=== PATIENT | male | born 1975 | race Hispanic/Latino ===

== ENCOUNTER 2020-01-05 10:43 | Emergency (ER) | payer OTHER ==
[~2020-01-05] VITALS: Ht 175.3 cm; Wt 108.9 kg
[2020-01-05 11:59] LABS: BASOPHILS % 0.5 % (0.0-1.0); EOSINOPHILS % 0.6 % (0.0-6.0); HEMATOCRIT 44.3 % (38.2-49.6); HEMOGLOBIN 14.8 g/dL (14.0-18.0); LYMPHOCYTES # (AUTO) 1.3 (1.0-3.2); LYMPHOCYTES % 20.8 % (18.0-39.1); MEAN CORPUSCULAR HGB CONC 33.4 g/dL (31-35); MEAN CORPUSCULAR VOLUME 89.7 fL (81-99); MONOCYTES # (AUTO) 0.3 (0.2-0.8); MONOCYTES % 4.9 % (4.4-11.3); NEUTROPHILS # (AUTO) 4.6 (2.1-6.9); NEUTROPHILS % 72.6 % (38.7-80.0); PLATELET COUNT 183 x10e3/uL (140-360); RED BLOOD COUNT 4.94 x10e6/uL (4.3-5.7); RED CELL DISTRIBUTION WIDTH 11.7 % (11.7-14.4)
[2020-01-05] MEDS ORDERED: DONNATAL/LIDOCAINE/MAALOX 30 ML SUSP PO ONE (12:00)
[2020-01-05 12:12] LABS: ALANINE AMINOTRANSFERASE 35 IU/L (0-55); ALBUMIN 4.3 g/dL (3.5-5.0); ALBUMIN/GLOBULIN RATIO 1.4 (0.8-2.0); ALKALINE PHOSPHATASE 84 IU/L (40-150); ANION GAP 14.3 mmol/L (8-16); BLOOD UREA NITROGEN 12 mg/dL (7-26); BUN/CREATININE RATIO 11 (6-25); CALCIUM 9.6 mg/dL (8.4-10.2); CARBON DIOXIDE 25 mmol/L (22-29); CHLORIDE 107 mmol/L (98-107); CREATINE KINASE 195 IU/L (30-200); CREATININE, SERUM 1.07 mg/dL (0.72-1.25); EST GLOMERULAR FILTRATION RATE > 60 ML/MIN (60-); GLUCOSE 97 mg/dL (74-118); POTASSIUM 4.3 mmol/L (3.5-5.1); SODIUM 142 mmol/L (136-145)
[2020-01-05] MEDS ORDERED: ASPIRIN 325 MG TAB PO ONE (12:30)
[2020-01-05] MEDS ORDERED: BELLADONNA ALK/PHENOBARBITAL 5 ML UDC ONE (12:36)
[2020-01-05] MEDS ORDERED: LIDOCAINE VISC 2% SOLN 15 ML UDC ONE (12:36)
[2020-01-05] MEDS ORDERED: MAGNESIUM/ALUMINUM/SIMETHICONE 30 ML UDC ONE (12:37)
--- NOTE | 2020-01-05 13:09 | Diagnostic Imaging Report ---
EXAMINATION: PA and lateral views of the chest. COMPARISON: None CLINICAL HISTORY: Chest pain, heartburn DISCUSSION: Lines/tubes: None. Lungs: The lungs are well inflated and clear. There is no evidence of pneumonia or pulmonary edema. Pleura: There is no pleural effusion or pneumothorax. Heart and mediastinum: Cardiomediastinal silhouette is unremarkable. Pulmonary vasculature is normal. Bones and soft tissues: No acute bony abnormalities. Very mild age-appropriate degenerative changes in the thoracic spine. IMPRESSION: No acute cardiopulmonary abnormalities. Signed by: Dr. Nikunj Pate M.D. on 01/05/2020 1:06 PM
[2020-01-05] MEDS ORDERED: LOMOTIL TABLET1 EACH PO (14:52)
[2020-01-05] MEDS ORDERED: CIPRO500 MG PO (14:52)
[2020-01-05] MEDS ORDERED: ONDANSETRON ODT8 MG PO (14:52)
[2020-01-08] MEDS ORDERED: IBUPROFEN400 MG PO (14:35)
== END 2020-01-05 15:14 | disposition home or self-care (01) ==
LOC: ER 10:43
DX: R10.13 Epigastric pain (principal); R11.2 Nausea with vomiting, unspecified; A04.9 Bacterial intestinal infection, unspecified
CPT/HCPCS: 36415; 71046; 80053; 82550; 82553; 83735; 84484; 85025; 93005; 99284

== ENCOUNTER → 2020-01-14 | Day surgery (SDC) | payer OTHER ==
[~2020-01-14] MED LIST: CIPRO500 MG PO; FENTANYL CITRATE/PF 100MCG/2 ML INJ ONE; IBUPROFEN400 MG PO; LOMOTIL TABLET1 EACH PO; MIDAZOLAM HCL 2 MG/2 ML VIAL ONE; ONDANSETRON ODT8 MG PO; PROPOFOL IV EMULSION 10 MG/ML 20 ML VIAL ONE
--- OUTSIDE RECORDS SUMMARY | 2020-01-14 13:19 | XMS REPORT ---
Author Author [facility] Organization [facility] Address Unknown Phone Unavailable Care Team Providers Care Salesperson Shoes Name Role Phone NO, PCP PP Unavailable Viry MUSE Unavailable Unavailable Advance Directives Directive Decision Effective Date Termination Date Status Comm ents Yes N/A Active Problems Condition Name Condition Details Condition Category Status Onset Date Resolution Date Last Treatment Date Treating Clinician Comments Problem Condition Allergies, Adverse Reactions, Alerts This patient has no known allergies or adverse reactions. Medications Ordered Medication Name Filled Medication Name Start Date Stop Da te Current Medication? Ordering Clinician Indication Dosage Frequency Signature (SIG) Comments Components Ciprofloxacin Hcl (Cipro) 500 Mg TABLET Ciprofloxacin Hcl (C ipro) 500 Mg TABLET 2020-01-05 14:52:00 Yes 500 Diphenoxylate Hcl/Atropine (Lomotil Tablet) 1 Each TAB LET Diphenoxylate Hcl/Atropine (Lomotil Tablet) 1 Each TABLET 2020-01-05 14:52:00 Yes 2 Ondansetron (Ondansetron Odt) 8 Mg TAB.RAPDIS Ondanset juanito (Ondansetron Odt) 8 Mg TAB.RAPDIS 2020-01-05 14:52:00 Yes 1 Ibuprofen Ibuprofen Yes 800 Vital Signs Vital Name Observation Time Observation Value Comments Weight 2020-01-05 11:03:00 240 [lb_av] Procedures and Interventions Procedure Date / Time Performed Performing Clinici an X-ray of chest, two views 2020-01-05 00:00:00 Encounters Start Date/Time End Date/Time Encounter Type Admission Type [facility] Care Department Encounter ID 2020-01-05 10:43:00 2020-01-05 15:14:00 Departed Emergency Room 1 ANSELMO MUSE [facility] [id number] Results Test Description Test Time Test Comments Text Results Atomic Results Result Comments CHEST 2 VIEWS 2020-01-05 13:04:00 [facility] [address] [address] Patient Name: KARINA PATHAK MR #: [id number] : 1975 Age/Sex: 44/M Req #: [id number] Adm Physician: Ordered by: ANSELMO MUSE Report #: [id number] Location: ER Room/Bed: Procedure: [id number] DX/CHEST 2 VIEWS Exam Date: 01/05/20 Exam Time: 1230 REPORT STATUS: Signed EXAMINATION: PA and lateral views of the chest. COMPARISON: None CLINICAL HISTORY: Chest pain, heartburn DISCUSSION: Lines/tubes: None. Lungs: The lungs are well inflated and clear. There is no evidence of pneumonia or pulmonary edema. Pleura: There is no pleural effusion or pneumothorax. Heart and mediastinum: Cardiomediastinal silhouette is unremarkable. Pulmonary vasculature is normal. Bones and soft tissues: No acute bony abnormalities. Very mild age-appropriate degenerative changes in the thoracic spine. IMPRESSION: No acute cardiopulmonary abnormalities. Signed by: Dr. Laquita Pate M.D. on 01/05/2020 1:06 PM Dictated By: LAQUITA PATE MD 1306 Transcribed By: JHON on 01/05/20 1306 COPY TO: ANSELMO MUSE Blood leukocytes automated count (number/volume) 2020-01-05 11:4 0:00 White Blood Count (test code = 6690-2) 6.35 Blood erythrocytes automated count (number/volume)2020-01-05 11:40:00* Test Item Value Reference Range Comments Red Blood Count (test code = 789-8) 4.94 Blood hemoglobin measurement (moles/volume)2020-01-05 11:40:00* Test Item Value Reference Range Comments Hemoglobin (test code = 93204-0) 14.8 Automated blood hematocrit (volume fraction)2020-01-05 11:40:00* Test Item Value Reference Range Comments Hematocrit (test code = 4544-3) 44.3 Automated erythrocyte mean corpuscular iigxqk2668-63-33 11:40:00* Test Item Value Reference Range Comments Mean Corpuscular Volume (test code = 787-2) 89.7 Automated erythrocyte mean corpuscular hemoglobin (mass per erythrocyte) 2020-01-05 11:40:00* Test Item Value Reference Range Comments Mean Corpuscular Hemoglobin (test code = 785-6) 30.0 Automated erythrocyte mean corpuscular hemoglobin concentration measurement (mas s/volume)2020-01-05 11:40:00* Test Item Value Reference Range Comments Mean Corpuscular Hemoglobin Concent (test code = 786-4) 33.4 RDW YtqTe-Mis9160-64-02 11:40:00* Test Item Value Reference Range Comments Red Cell Distribution Width (test code = 20847-3) 11.7 Automated blood platelet count (count/volume)2020-01-05 11:40:00* Test Item Value Reference Range Comments Platelet Count (test code = 777-3) 183 Automated blood segmented neutrophil count as percentage of total leukocytes 2020-01-05 11:40:00* Test Item Value Reference Range Comments Neutrophils (%) (Auto) (test code = 87067-3) 72.6 Automated blood lymphocyte count as percentage ot total qkrtgxammi7255-17-03 11:40:00* Test Item Value Reference Range Comments Lymphocytes (%) (Auto) (test code = 736-9) 20.8 Automated blood monocyte count as percentage of total cgmspczpix0124-30-72 11:40:00* Test Item Value Reference Range Comments Monocytes (%) (Auto) (test code = 5905-5) 4.9 Automated blood eosinophil count as percentage of total qtmqwafbqw8754-62-56 11:40:00* Test Item Value Reference Range Comments Eosinophils (%) (Auto) (test code = 713-8) 0.6 Automated blood basophil count as percentage of total foolfhbfzr0191-28-78 11:40:00* Test Item Value Reference Range Comments Basophils (%) (Auto) (test code = 706-2) 0.5 Fluoroscopic procedure less than one hour oktcsgjx5070-96-66 11:40:00* Test Item Value Reference Range Comments IM GRANULOCYTES % (test code = IM GRANULOCYTES %) 0.6 Automated blood neutrophil gswqi4516-20-49 11:40:00* Test Item Value Reference Range Comments Neutrophils # (Auto) (test code = 751-8) 4.6 Blood lymphocytes count (number/volume)2020-01-05 11:40:00* Test Item Value Reference Range Comments Lymphocytes # (Auto) (test code = 53802-8) 1.3 Blood monocytes automated count (number/volume)2020-01-05 11:40:00* Test Item Value Reference Range Comments Monocytes # (Auto) (test code = 742-7) 0.3 Automated blood eosinophil emtzl0124-78-66 11:40:00* Test Item Value Reference Range Comments Eosinophils # (Auto) (test code = 711-2) 0.0 Automated blood basophil count (count/volume)2020-01-05 11:40:00* Test Item Value Reference Range Comments Basophils # (Auto) (test code = 704-7) 0.0 Fluoroscopic procedure less than one hour wvtibvoi1763-11-88 11:40:00* Test Item Value Reference Range Comments Absolute Immature Granulocyte (auto (ricky t code = Absolute Immature Granulocyte (auto) 0.04 Serum or plasma sodium measurement (moles/volume)2020-01-05 11:40:00* Test Item Value Reference Range Comments Sodium Level (test code = 2951-2) 142 Serum or plasma potassium measurement (moles/volume)2020-01-05 11:40:00* Test Item Value Reference Range Comments Potassium Level (test code = 2823-3) 4.3 Serum or plasma chloride measurement (moles/volume)2020-01-05 11:40:00* Test Item Value Reference Range Comments Chloride Level (test code = 2075-0) 107 Serum or plasma carbon dioxide, total measurement (moles/volume)2020-01-05 11:40:00* Test Item Value Reference Range Comments Carbon Dioxide Level (test code = 2028-9) 25 Serum or plasma anion [id number] 11:40:00* Test Item Value Reference Range Comments Anion Gap (test code = 68684-8) 14.3 Serum or plasma urea nitrogen measurement (mass/volume)2020-01-05 11:40:00* Test Item Value Reference Range Comments Blood Urea Nitrogen (test code = 3094-0) 12 Serum or plasma creatinine measurement (mass/volume)2020-01-05 11:40:00* Test Item Value Reference Range Comments Creatinine (test code = 2160-0) 1.07 Serum or plasma urea nitrogen/creatinine mass kusru2437-85-73 11:40:00* Test Item Value Reference Range Comments BUN/Creatinine Ratio (test code = 3097-3) 11 Estimated glomerular filtration rate (GFR) yaahxnaecyofj4688-76-41 11:40:00* Test Item Value Reference Range Comments Estimat Glomerular Filtration Rate (test code = 903284764) > 60 Glucose depkhkripek9575-22-88 11:40:00* Test Item Value Reference Range Comments Glucose Level (test code = VAX3929) 97 Serum or plasma calcium measurement (mass/volume)2020-01-05 11:40:00* Test Item Value Reference Range Comments Calcium Level (test code = 12927-8) 9.6 Serum or plasma magnesium measurement (mass/volume)2020-01-05 11:40:00* Test Item Value Reference Range Comments Magnesium Level (test code = 27706-5) 2.0 Serum or plasma total bilirubin measurement (mass/volume)2020-01-05 11:40:00* Test Item Value Reference Range Comments Total Bilirubin (test code = 1975-2) 0.7 Fluoroscopic procedure less than one hour qyadkaia8847-39-38 11:40:00* Test Item Value Reference Range Comments Aspartate Amino Transf (AST/SGOT) (test code = Aspartate Amino Transf (AST/SGOT)) 26 Serum or plasma alanine aminotransferase measurement (enzymatic activity/volume) 2020-01-05 11:40:00* Test Item Value Reference Range Comments Alanine Aminotransferase (ALT/SGPT) (test code = 1742-6) 35 Serum or plasma protein measurement (mass/volume)2020-01-05 11:40:00* Test Item Value Reference Range Comments Total Protein (test code = 2885-2) 7.3 Serum or plasma albumin measurement (mass/volume)2020-01-05 11:40:00* Test Item Value Reference Range Comments Albumin (test code = 1751-7) 4.3 Plasma globulin measurement (mass/volume)2020-01-05 11:40:00* Test Item Value Reference Range Comments Globulin (test code = 55100-4) 3.0 Serum or plasma albumin/globulin mass mubiv4001-41-17 11:40:00* Test Item Value Reference Range Comments Albumin/Globulin Ratio (test code = 1759-0) 1.4 Serum or plasma alkaline phosphatase measurement (enzymatic activity/volume) 2020-01-05 11:40:00* Test Item Value Reference Range Comments Alkaline Phosphatase (test code = 6768-6) 84 Serum or plasma creatine kinase measurement (enzymatic activity/volume) 2020-01-05 11:40:00* Test Item Value Reference Range Comments Creatine Kinase (test code = 2157-6) 195 Serum or plasma creatine kinase MB measurement (mass/volume)2020-01-05 11:40:00 * Test Item Value Reference Range Comments Creatine Kinase MB (test code = 08252-0) 2.60 Troponin I measurement by highly sensitive enzyme izymfdonszs0086-67-16 11:40:00 * Test Item Value Reference Range Comments Troponin I (test code = 82439-0) < 0.001
[2020-01-14 14:55] VITALS: BP 126/77
--- NOTE | 2020-01-14 19:40 | Operative Report ---
DATE OF PROCEDURE: 01/14/2020 SURGEON: Kamron Wing MD PROCEDURE: EGD with biopsies. INDICATIONS FOR EGD: Upper abdominal pain, nausea, and vomiting. MEDICATIONS: The patient was done under MAC, please see anesthesiologist's note. PROCEDURE IN DETAIL: With the patient in left lateral decubitus position, a flexible fiberoptic Olympus gastroscope was introduced into the esophagus under direct visualization without any difficulty. There was some patchy erythema noted in distal esophagus. The scope was then advanced with ease into the stomach. Mucosa overlying the antrum and the body revealed some patchy erythema and cepi-fh-ipltwdzc edema, and biopsies were obtained sent to stain for H. pylori. The pylorus was of normal contour and shape, it was intubated with ease and the scope was advanced all the way to the second portion of the duodenum. Biopsies were obtained from the proximal second portion and duodenal bulb to rule out sprue. The scope was then withdrawn back into the stomach and retroflexed, mucosa overlying the fundus and cardia appeared to be within normal limits. The scope was then straightened out, it was subsequently withdrawn. The patient tolerated the procedure well. IMPRESSION: 1. Distal esophagitis. 2. Gastritis, biopsied, biopsies sent to stain for H. pylori. 3. Rule out sprue. PLAN: 1. Followup histology. 2. Initiate Protonix 40 mg one p.o. q.a.m. a.c. Kamron Wing MD [facility] [place] [facility] [place] /[id number]
== END | disposition home or self-care (01) ==
LOC: OR 13:17
PROVIDERS: ATTEND Internal Medicine Gastroenterology
DX: K29.50 Unspecified chronic gastritis without bleeding (principal); K20.9 Esophagitis, unspecified; K21.9 Gastro-esophageal reflux disease without esophagitis; R19.7 Diarrhea, unspecified; Z01.812 Encounter for preprocedural laboratory examination; Z11.59 Encounter for screening for other viral diseases
CPT/HCPCS: 43239; 87635; J2250; J3010

== ENCOUNTER → 2020-02-06 | Outpatient (CLI) | payer OTHER ==
[~2020-02-06] MED LIST changes: -FENTANYL CITRATE/PF 100MCG/2 ML INJ ONE; -MIDAZOLAM HCL 2 MG/2 ML VIAL ONE; -PROPOFOL IV EMULSION 10 MG/ML 20 ML VIAL ONE
--- NOTE | 2020-02-06 13:30 | Diagnostic Imaging Report ---
EXAM: US ABDOMEN COMPLETE DATE: 02/06/2020 11:07 AM INDICATION: Right upper quadrant abdominal pain COMPARISON: None TECHNIQUE: Transverse and longitudinal cabello scale and color doppler sonographic images of the upper abdomen were obtained. FINDINGS: LIVER 16.0 cm in the right midclavicular line. Mildly increased echogenicity of the liver with normal contour, no masses. SPLEEN 10.9 cm in maximum diameter. Normal echogenicity, no masses. GALLBLADDER No gallbladder wall thickening, distension, stone, or pericholecystic fluid. Negative reported sonographic Babrer's sign. The gallbladder wall measures 3mm BILE DUCTS No intra nor extra-hepatic biliary dilation. Common bile duct measures 3mm PANCREAS: Limited visualization due to overlying bowel gas. RIGHT KIDNEY: 10.6 cm Echogenicity: Normal Collecting System: No hydronephrosis Stones: None Cyst/Mass: None LEFT KIDNEY: 11.0 cm Echogenicity: Normal Collecting System: No hydronephrosis Stones: None Cyst/Mass: None VESSELS: Aorta: Visualized portions are within normal size limits Inferior Vena Cava: Visualized portions are normal Main Portal Vein: 0.9 cm, normal size with hepatopetal flow. FREE FLUID: None IMPRESSION: No cholelithiasis or sonographic evidence of cholecystitis. Mild diffuse hepatic steatosis. Signed by: Ron Capone MD on 02/06/2020 1:27 PM
== END ==
LOC: US 10:47
PROVIDERS: ATTEND Internal Medicine Gastroenterology
DX: R10.11 Right upper quadrant pain (principal)
CPT/HCPCS: 76700